=== PATIENT | female | born 1985 | race Two or more races ===

== ENCOUNTER 2024-11-25 15:45 | Emergency (ER) | payer MEDICAID, SELFPAY ==
[2024-11-25 15:46] VITALS: BMI 33.5
[2024-11-25 16:43] VITALS: BP 127/85; PULSE 98; RESP 16; TEMP 36.9; O2SAT 97
--- NOTE | 2024-11-25 16:59 | XR_ITS ---
Examination: Complete OB ultrasound greater than 14 weeks Date and time of exam: November 25, 2024 1828 hrs. Indications: Onset heavy vaginal bleeding and pelvic pain beginning today Findings: Viable intrauterine single fetus with single amniotic sac presentation breech Cardiac motion 147 BPM Placenta fundal grade 1 no abruption Umbilical cord seen Amniotic fluid index 10.6 cm spine posterior Cervix 3.1 cm Right ovary 3.0 x 3.2 cm arterial flow 13 mm follicular cyst Left ovary 3.0 x by 2.3 cm arterial flow Composite estimated gestational age based on BPD, head circumference, abdominal circumference, femur length is 14 weeks 5 days Estimated weight 104.8 g. Survey of intracranial anatomy, spinal anatomy, abdominal anatomy, four-chamber heart performed with no abnormalities identified. Impression: Viable intrauterine gestation breech presentation No subchorionic hemorrhage demonstrated.
--- NOTE | 2024-11-25 17:00 | PD.EDRME ---
Rapid Medical Screening Exam RME Arrival date/time: 11/25/24 15:45 39-year-old female presents emergency department with complaints of vaginal bleeding reports possible 14 weeks of gestation. I have greeted and performed a focused initial assessment of this patient. Initial appropriate labs ordered at this time. A comprehensive ED assessment and evaluation of the patient and analysis of all test and completion of medical decision making process will be conducted by additional ED provider. Chief Complaint: Vaginal Bleeding Time Seen by Provider: 11/25/24 16:40 Vital signs: Vital Signs Temperature 98.5 F 11/25/24 16:43 Pulse Rate 98 11/25/24 16:43 Respiratory Rate 16 11/25/24 16:43 Blood Pressure 127/85 H 11/25/24 16:43 Pulse Oximetry (%) 97 11/25/24 16:43 Oxygen Delivery Method Room Air 11/25/24 16:43
[2024-11-25 17:43] LABS: Basophils % (Auto) 0 % (0-2.5); Eosinophils # (Auto) 0.1 Thou/mm3 (0.0-0.5); Eosinophils % (Auto) 1 % (0-10); Hemoglobin 12.1 g/dL (12.0-16.0); Immature Granulocytes % (Auto) 1 % (0-0); Immature Granulocytes Auto 0.06 Thou/mm3 (0.00-0.00); Lymphocytes % (Auto) 17 % (10-50); Mean Corpuscular HGB Conc 34.6 g/dl (31.0-37.0); Mean Corpuscular Hemoglobin 30.9 pg (25.0-35.0); Mean Corpuscular Volume 89 fL (80-100); Monocytes # (Auto) 0.9 Thou/mm3 (0.0-0.8); Monocytes % (Auto) 8 % (0-12); Neutrophils # (Auto) 8.8 Thou/mm3 (1.8-7.7); Neutrophils % (Auto) 74 % (37-80); Nucleated Red Blood Cell % 0 /100 WBC (0); Platelet Count 268 Thou/mm3 (140-440); RDW Standard Deviation 42.5 fL (36.4-46.3); Red Blood Count 3.92 Miln/mm3 (4.00-5.20); White Blood Count 11.8 Thou/mm3 (3.6-11.0)
[2024-11-25 17:59] LABS: Collection Type, Urine Clean Catch
[2024-11-25 18:04] LABS: Alanine Aminotransferase 14 U/L (10-49); Albumin, Serum 4.6 gm/dL (3.5-5.0); Albumin/Globulin Ratio 1.9 (1.2-2.2); Alkaline Phosphatase 53 U/L (46-116); Anion Gap 11 (7-16); Aspartate Amino Transferase 13 U/L (0-34); BUN/Creatinine Ratio 16 Ratio (12-20); Bilirubin,Total 0.3 mg/dL (0.3-1.2); Blood Urea Nitrogen 8 mg/dL (9-23); Calcium 9.9 mg/dL (8.3-10.6); Calcium (Corrected) 9.9 mg/dL (8.5-10.1); Carbon Dioxide 22.6 mMol/L (20.0-31.0); Chloride 104 mMol/L (98-107); Creatinine (Component) 0.5 mg/dL (0.6-1.3); Estimated Creatinine Clearance 140.9 mL/min (>60); Globulin 2.4 gm/dL (2.3-3.5); Glucose 88 mg/dL (74-106); Osmolality,Calculated 272 (275-295); Sodium 138 mMol/L (136-145); eGFR > 60 See Note
--- NOTE | 2024-11-25 18:07 | PD.EDVAGBL ---
ED OB Contraction Preg RMI/HPI General Chief complaint: Vaginal Bleeding Stated complaint: +PREG WITH VAG BLEED XTODAY Time Seen by Provider: 11/25/24 16:40 Arrival date/time: 11/25/24 15:45 RME / HPI RME / HPI Narrative: 11/25/24 15:45 39-year-old female presents emergency department with complaints of vaginal bleeding reports possible 14 weeks of gestation. I have greeted and performed a focused initial assessment of this patient. Initial appropriate labs ordered at this time. A comprehensive ED assessment and evaluation of the patient and analysis of all test and completion of medical decision making process will be conducted by additional ED provider. DR. JOHNSON MAIN ED EVALUATION: 39 year old female, who is 14 weeks , presents to the Emergency Department with complaint of vaginal bleeding today. Symptoms are mild to moderate. Patient denies any fevers, chills, fall, injury, or any other symptoms at this time. PMHx: Denies any PMHx, surgeries, daily medications, or known allergies. Social Hx: No tobacco, alcohol, or substance use. Related Data Home Medications ?Medication ?Instructions ?Recorded ?Confirmed sertraline 25 mg tablet 25 mg PO QDAY 08/11/18 02/28/24 cephalexin 500 mg capsule 500 mg PO BID 02/28/24 02/28/24 omeprazole 20 mg capsule,delayed 20 mg PO QDAY 02/28/24 02/28/24 release Previous Rx's ?Medication ?Instructions ?Recorded ibuprofen 600 mg tablet 600 mg PO Q6H PRN pain #20 tabs 01/08/24 IBU 800 mg tablet (ibuprofen) 800 mg PO Q6H PRN pain #30 tabs 05/27/24 acetaminophen 500 mg tablet 500 mg PO Q6H PRN fever or pain 05/27/24 (Tylenol Extra Strength) #30 tabs nitrofurantoin 100 mg PO BID #14 caps 11/25/24 monohydrate/macrocrystals 100 mg capsule (Macrobid) vit no.95-ferrous 1 tab PO QDAY #30 tabs 11/25/24 fumarate 28 mg-folic acid 800 mcg tablet ( Multivitamins) Allergies Allergy/AdvReac Type Severity Reaction Status Date / Time vancomycin Allergy Severe Red [place] Verified 11/25/24 15:48 Syndrome Review of Systems Review of Systems Systems Reviewed: All systems reviewed, normal except as documented Narrative Review of Systems: GEN: No fever, no chills, no weight loss EYES: No discharge, no visual changes, no pain HEENT: No ear pain, no congestion, no sore throat PULM: No shortness of breath, no cough, no congestion CV: No chest pain, no dyspnea on exertion, no palpitations GI: No nausea, no vomiting, no diarrhea, no pain, no constipation : No frequency, no urgency and no dysuria + vaginal bleeding MUSC/SKEL: No joint pain, no back pain SKIN: No rash PSYCH: No hallucinations, no depression HEME/LYMPH: No easy bleeding or bruising tendencies NEURO: No weakness, no headache Past Medical History Past Medical History NEUROLOGIC: Positive Neurological Disorders and Migraine (TAKES MED) REPRODUCTIVE: Positive Previous Pregnancies (X3) MUSCULOSKELETAL: Positive Musculoskeletal Disorders HEMATOLOGIC: Positive Anemia PSYCHO/SOCIAL: Positive Anxiety (TAKES SERTRALINE) Family History FAMILY HISTORY: Positive Family Psychiatric Problems, Family Cardiac Disorders and Family Surgery Surgical History SURGICAL: Positive Lumpectomy Social History SMOKING STATUS: Never smoker SECOND HAND EXPOSURE: No SUBSTANCE USE: does not use ALCOHOL: Never ED Exam Narrative Physical exam: GENERAL APPEARANCE: alert and oriented x 4, well-developed, well-nourished, no acute distress VITALS: All vitals were reviewed and the pulse ox is 97% on room air, which is normal according to my interpretation. HEENT: Normocephalic, atraumatic; pupils equal, round, reactive to light; EOMI; mucous membranes pink, moist; oropharynx clear NECK: Supple LUNGS: CTABL; no wheezes, no rales, no rhonchi HEART: Regular rate, regular rhythm; normal S1, S2; no murmurs ABDOMEN: non distended; normal BS; soft, no tenderness, no guarding, no rebound; no masses, no organomegaly, no hernia BACK: no CVA tenderness EXTREMITIES: atraumatic; no edema NEUROLOGIC: awake; alert and oriented x4; cranial nerves II-XII grossly intact; no focal sensory or motor deficits PSYCHIATRIC: appropriate mood and affect SKIN: warm, dry, normal color; no rashes Course Quality Measures none Orders Category Date Time Status US OB >= 14 weeks Fetus Stat Exams 11/25/24 16:59 Completed ABO/RH Type Stat Lab 11/25/24 17:30 Completed Beta HCG,Quantitative Stat Lab 11/25/24 17:30 Completed CBC Stat Lab 11/25/24 17:30 Completed Comprehensive Metabolic Panel Stat Lab 11/25/24 17:30 Completed Urinalysis Stat Lab 11/25/24 17:41 Completed Urine Culture Stat Lab 11/25/24 17:41 Received Nitrofurantoin Macro [Macrobid] Med 11/25/24 19:55 Discontinued 100 mg PO X1 ONE Vital Signs Vital signs: Vital Signs Temperature 98.5 F 11/25/24 16:43 Pulse Rate 98 11/25/24 16:43 Respiratory Rate 16 11/25/24 16:43 Blood Pressure 127/85 H 11/25/24 16:43 Pulse Oximetry (%) 97 11/25/24 16:43 Oxygen Delivery Method Room Air 11/25/24 16:43 Vaginal Bleeding MDM Narrative MDM Narrative: Keshia Michaud am scribing for and in the presence of Dr. Johnson. Patient data External records reviewed:: [facility] previous records (Reviewed last ED visit dated 05/27/24, discharged with the following: Abscess.) Clinical information provided by:: patient Social determinants that could affect healthcare access:: none Patient has the following chronic illnesses:: Denies any PMHx, surgeries, daily medications, or known allergies. How is presenting disease/condition affected by chronic disease/condition?: no chronic disease Evaluation data The following diagnostics were reviewed and interpreted by me:: lab results and radiology exam(s) Lab and/or radiology exams considered but not ordered:: none Interpretation Summary: Procedure(s): US OB >= 14 weeks Fetus Accession Number(s): [id number] cc: Lars Campuzano MD; Jesse Canales MD; Libra Parker~ Examination: Complete OB ultrasound greater than 14 weeks Date and time of exam: November 25, 2024 1828 hrs. Indications: Onset heavy vaginal bleeding and pelvic pain beginning today Findings: Viable intrauterine single fetus with single amniotic sac presentation breech Cardiac motion 147 BPM Placenta fundal grade 1 no abruption Umbilical cord seen Amniotic fluid index 10.6 cm spine posterior Cervix 3.1 cm Right ovary 3.0 x 3.2 cm arterial flow 13 mm follicular cyst Left ovary 3.0 x by 2.3 cm arterial flow Composite estimated gestational age based on BPD, head circumference, abdominal circumference, femur length is 14 weeks 5 days Estimated weight 104.8 g. Survey of intracranial anatomy, spinal anatomy, abdominal anatomy, four-chamber heart performed with no abnormalities identified. Impression: Viable intrauterine gestation breech presentation No subchorionic hemorrhage demonstrated. Dictated By: Jesse Canales MD Medications / Prescriptions Medications or Prescriptions considered but not ordered:: none Medication administrations:: Medication Administration History Discontinued Medications Nitrofurantoin Macrocrystals (Nitrofurantoin Macro 100 Mg Capsule) 100 mg PO X1 ONE Stop: 11/25/24 19:56 see above if any Consultations Consultation(s) initiated? (list below): No Diagnosis Vaginal Bleeding Differential Diagnosis: missed , threatened , ectopic without intrauterine and vaginal bleeding Most likely diagnosis given after review of the tests above:: Vaginal bleeding during UTI Admission Indicated Admission indicated?: not indicated Admission Request Was there a request for admission?: No Disposition Plan Disposition Plan: Discharge Discharge Attestation Discharge Attestation: The patient and all family members were given an opportunity to ask questions and understood the discharge instructions. Discharge instructions specifically effects, indications for sooner follow up or return to the emergency department, and the expected course of current diagnosis. Patient condition: Stable Discharge Plan Plan Patient Disposition: HOME (Self Care) Prescriptions/Referrals Prescriptions/Med Rec: New PNV cmb#95-ferrous fumarate-FA [ Multivitamins] 28 mg iron- 800 mcg tablet 1 tab PO QDAY Qty: 30 0RF nitrofurantoin monohyd/m-cryst [Macrobid] 100 mg capsule 100 mg PO BID Qty: 14 0RF Rx Instructions: must administer with a meal/food No Action omeprazole 20 mg capsule,delayed release(DR/EC) 20 mg PO QDAY cephalexin 500 mg capsule 500 mg PO BID sertraline 25 mg Tablet 25 mg PO QDAY ibuprofen 600 mg tablet 600 mg PO Q6H PRN (Reason: pain) Qty: 20 0RF ibuprofen [IBU] 800 mg tablet 800 mg PO Q6H PRN (Reason: pain) Qty: 30 0RF acetaminophen [Tylenol Extra Strength] 500 mg tablet 500 mg PO Q6H PRN (Reason: fever or pain) Qty: 30 0RF Referrals: Lars Campuzano MD [Primary Care Provider] - In 1 week Problem List Clinical Impression: , Vaginal bleeding during , UTI (urinary tract infection) Patient/Caregiver Discharge Instructions Education Materials: Preg 2nd Trimester, Bleeding During Early , ED CYSTITIS Female Adult Print Language: Samoan Stand Alone Forms: Skylar Award Info., Patient Portal Info Letter
[2024-11-25 18:45] LABS: Beta HCG,Quantitative 41907 mIU/mL (<5.0)
[2024-11-25 18:50] LABS: Bacteria,Urine 3+; Bilirubin,Urine Negative (Negative); Blood,Urine 3+ (Negative); Clarity,Urine Clear (Clear/Hazy); Color,Urine Lt-Yellow (Lt Yel-Yel); Glucose, Urine Negative (Negative); Ketones,Urine Negative (Negative); Leukocyte Esterase,Urine Positive (Negative); Nitrite,Urine Negative (Negative); Protein,Urine Trace (Neg - Trace); RBC,Urine 13 /hpf (0-3); Specific Gravity,Urine 1.011 (1.001-1.035); Squamous Epithelial Cell,Urine 3 /hpf (0-5); Urobilinogen,Urine Negative mg/dL (0.0-1.0); WBC,Urine 17 /hpf (0-5)
[2024-11-25 18:51] LABS: Sperm,Urine Present
[2024-11-25] MEDS: NITROFURANTOIN MACRO 100 MG CAPSULE PO (20:59)
[2024-11-25 21:01] VITALS: BP 127/65; PULSE 67; RESP 19; TEMP 36.6; O2SAT 99
== END 2024-11-25 21:01 | disposition home or self-care (01) ==
PROVIDERS: Nurse Practitioner Primary Care; Emergency Provider Emergency Medicine; PCP Family Medicine
DX: O20.9 Hemorrhage in early pregnancy, unspecified (principal); O23.42 Unspecified infection of urinary tract in pregnancy, second trimester; N39.0 Urinary tract infection, site not specified; Z3A.14 14 weeks gestation of pregnancy
CPT/HCPCS: 36415; 76805; 80053; 81001; 84702; 85025; 86900; 86901; 87077; 87086; 87186; 99284; A9270

== ENCOUNTER 2024-12-31 18:10 | Emergency (ER) | payer MEDICAID, SELFPAY ==
[2024-12-31 18:12] VITALS: BMI 31.6
[2024-12-31 18:26] VITALS: BP 127/76; PULSE 89; RESP 18; TEMP 36.6; O2SAT 98
--- NOTE | 2024-12-31 18:47 | PD.EDRME ---
Rapid Medical Screening Exam RME Arrival date/time: 12/31/24 18:10 39-year-old female approximately 5 months presents emergency department complaining of abdominal pain that radiates towards her back that started this morning. Patient reports past medical history of gallstones. Chief Complaint: General Adult/Misc Complain Time Seen by Provider: 12/31/24 18:17 Vital signs: Vital Signs Temperature 97.8 F 12/31/24 18:26 Pulse Rate 89 12/31/24 18:26 Respiratory Rate 18 12/31/24 18:26 Blood Pressure 127/76 12/31/24 18:26 Pulse Oximetry (%) 98 12/31/24 18:26 Oxygen Delivery Method Room Air 12/31/24 18:26 Vital signs reviewed by provider: Yes
[2024-12-31] MEDS: HYDROcodone/APAP 5/325 TABLET 1 TAB PO (18:48)
--- NOTE | 2024-12-31 18:48 | XR_ITS ---
Examination: Abdomen sonogram, Limited Date and time of exam: December 31, 2024 2106 hrs. Indications: Right upper abdominal pain beginning today Technique: Real-time bonilla scale transabdominal sonographic images of the upper abdomen obtained. Findings: Negative for gallstones Normal common bile duct Pancreatic head 2.0 cm Fatty liver 17.7 cm Normal hepatopedal portal venous flow Patent IVC Impression: Normal gallbladder Mild hepatomegaly fatty liver
--- NOTE | 2024-12-31 18:56 | XR_ITS ---
Examination: Complete OB ultrasound greater than 14 weeks Date and time of exam: December 31, 2024 2113 hrs. Indications: Onset right upper abdominal pain today,. Findings: Viable intrauterine single fetus with single amniotic sac presentation cephalic Cardiac motion 150 BPM Placenta anterior grade 1 Umbilical cord insertion seen Amniotic fluid index 10.9 cm Cervix 3.7 cm Ovaries obscured by the uterus. Composite estimated gestational age based on BPD, head circumference, abdominal circumference, femur length is 19 weeks 6 days Estimated weight 228 g. Survey of intracranial anatomy, spinal anatomy, abdominal anatomy, four-chamber heart performed with no abnormalities identified. Impression: Viable intrauterine gestation cephalic presentation.
[2024-12-31 19:22] LABS: Collection Type, Urine Clean Catch
[2024-12-31 19:25] LABS: Basophils % (Auto) 0 % (0-2.5); Eosinophils # (Auto) 0.1 Thou/mm3 (0.0-0.5); Eosinophils % (Auto) 1 % (0-10); Hematocrit 34.3 % (36.0-46.0); Hemoglobin 11.6 g/dL (12.0-16.0); Immature Granulocytes % (Auto) 1 % (0-0); Immature Granulocytes Auto 0.08 Thou/mm3 (0.00-0.00); Lymphocytes # (Auto) 2.8 Thou/mm3 (1.0-4.8); Lymphocytes % (Auto) 21 % (10-50); Mean Corpuscular HGB Conc 33.8 g/dl (31.0-37.0); Mean Corpuscular Hemoglobin 30.4 pg (25.0-35.0); Mean Corpuscular Volume 90 fL (80-100); Monocytes # (Auto) 0.8 Thou/mm3 (0.0-0.8); Monocytes % (Auto) 6 % (0-12); Neutrophils # (Auto) 9.2 Thou/mm3 (1.8-7.7); Neutrophils % (Auto) 71 % (37-80); Nucleated Red Blood Cell % 0 /100 WBC (0); Platelet Count 235 Thou/mm3 (140-440); RDW Standard Deviation 43.3 fL (36.4-46.3); Red Blood Count 3.81 Miln/mm3 (4.00-5.20)
[2024-12-31 19:27] LABS: Bilirubin,Urine Negative (Negative); Blood,Urine Negative (Negative); Clarity,Urine Turbid (Clear/Hazy); Color,Urine Lt-Yellow (Lt Yel-Yel); Culture Indicated,Urine Not Indicated; Glucose, Urine Negative (Negative); Ketones,Urine Negative (Negative); Leukocyte Esterase,Urine Negative (Negative); Nitrite,Urine Negative (Negative); PH,Urine 6.5 (5.0-7.0); Protein,Urine Trace (Neg - Trace); RBC,Urine 1 /hpf (0-3); Specific Gravity,Urine 1.022 (1.001-1.035); Squamous Epithelial Cell,Urine 14 /hpf (0-5); Urobilinogen,Urine Negative mg/dL (0.0-1.0); WBC,Urine 1 /hpf (0-5)
[2024-12-31 19:44] LABS: Alanine Aminotransferase 12 U/L (10-49); Albumin, Serum 4.3 gm/dL (3.5-5.0); Albumin/Globulin Ratio 1.9 (1.2-2.2); Alkaline Phosphatase 54 U/L (46-116); Anion Gap 10 (7-16); Aspartate Amino Transferase 15 U/L (0-34); BUN/Creatinine Ratio 17 Ratio (12-20); Bilirubin,Total 0.3 mg/dL (0.3-1.2); Blood Urea Nitrogen 10 mg/dL (9-23); Calcium 9.5 mg/dL (8.3-10.6); Calcium (Corrected) 9.5 mg/dL (8.5-10.1); Carbon Dioxide 22.4 mMol/L (20.0-31.0); Chloride 106 mMol/L (98-107); Creatinine (Component) 0.6 mg/dL (0.6-1.3); Estimated Creatinine Clearance 113.8 mL/min (>60); Globulin 2.3 gm/dL (2.3-3.5); Glucose 104 mg/dL (74-106); Lipase 37 U/L (12-53); Osmolality,Calculated 274 (275-295); Potassium 3.7 mMol/L (3.4-5.1); Sodium 138 mMol/L (136-145); Total Protein 6.6 gm/dL (5.7-8.2); eGFR > 60 See Note
[2024-12-31 20:08] VITALS: BP 147/84; PULSE 106; RESP 20; TEMP 36.7; O2SAT 98
[2024-12-31] MEDS: METOCLOPRAMIDE INJ 5 MG/ML VIAL 2 ML 10 MG IM (20:43)
--- NOTE | 2024-12-31 22:06 | PD.EDADULT ---
ED General RME/HPI General Chief complaint: General Adult/Misc Complain Stated complaint: PAIN IN HER BLADDER, BACK TO FRONT ON THE R) Time Seen by Provider: 12/31/24 18:17 Arrival date/time: 12/31/24 18:10 RME / HPI RME / HPI narrative: 12/31/24 18:10 39-year-old female approximately 5 months presents emergency department complaining of abdominal pain that radiates towards her back that started this morning. Patient reports past medical history of gallstones. Dr. Meléndez?s Main ED Evaluation: 39yo female who is ~5 month gestation presents to the ED for a chief complaint of epigastric and RUQ pain x 1000. Patient states her pain radiates to her back and is severe in nature. Patient reports associated sweating and 2 nonbloody emetic episodes. Patient denies any UTI symptoms, fever, chills or any other associated symptoms. She denies any previous abdominal surgeries. Patient states she had similar symptoms 1 year ago when she was diagnosed with gallstones. Related Data Home Medications ?Medication ?Instructions ?Recorded ?Confirmed sertraline 25 mg tablet 25 mg PO QDAY 08/11/18 02/28/24 cephalexin 500 mg capsule 500 mg PO BID 02/28/24 02/28/24 omeprazole 20 mg capsule,delayed 20 mg PO QDAY 02/28/24 02/28/24 release Previous Rx's ?Medication ?Instructions ?Recorded ibuprofen 600 mg tablet 600 mg PO Q6H PRN pain #20 tabs 01/08/24 IBU 800 mg tablet (ibuprofen) 800 mg PO Q6H PRN pain #30 tabs 05/27/24 acetaminophen 500 mg tablet 500 mg PO Q6H PRN fever or pain 05/27/24 (Tylenol Extra Strength) #30 tabs nitrofurantoin 100 mg PO BID #14 caps 11/25/24 monohydrate/macrocrystals 100 mg capsule (Macrobid) vit no.95-ferrous 1 tab PO QDAY #30 tabs 11/25/24 fumarate 28 mg-folic acid 800 mcg tablet ( Multivitamins) Allergies Allergy/AdvReac Type Severity Reaction Status Date / Time vancomycin Allergy Severe Red Dafne Verified 12/31/24 18:15 Syndrome Review of Systems Review of Systems Systems Reviewed: All systems reviewed, normal except as documented Past Medical History Past Medical History NEUROLOGIC: Positive Neurological Disorders and Migraine; Negative Seizures CARDIAC: Negative Cardiac Disorders, Myocardial Infarction, Cardiac Arrhythmia, Atrial Fibrillation, Angina, Heart Murmur, Coronary Artery Disease, Atherosclerotic Heart Disease, Peripheral Vascular Disease, Hypercholesterolemia, Aneurysm, Congestive Heart Failure, Congenital Heart Disease, Valvular Heart Disease, Rheumatic Fever, Cardiomyopathy, Edema, Pericarditis, Cellulitis, Deep Vein Thrombosis, Hypertension, Hypotension or Varicose Veins RESPIRATORY: Negative Chronic Obstructive Pulmonary Disease (COPD) GASTROINTESTINAL: Negative Gastrointestinal Disorders, Hepatitis or Colorectal Cancer GENITOURINARY: Negative Genitourinary Disorders, Renal Disease or Prostate Cancer REPRODUCTIVE: Positive Previous Pregnancies; Negative Breast Cancer or Testicular Cancer MUSCULOSKELETAL: Positive Musculoskeletal Disorders; Negative Bone Cancer or Carpal Tunnel Syndrome ENT: Negative Cataracts ENDOCRINE: Negative Endocrine Disorders, Diabetes Mellitus Type 1, Diabetes Mellitus Type 2, Hypoglycemia, Kentrell's Syndrome, [place]'s Disease, Hyperthyroidism, Hypothyroidism, Parathyroid Disease, Pituitary Disease, Systemic Lupus Erythematosus, Syndrome of Inappropriate Antidiuretic Hormone (SIADH), Adrenal Disease or Graves' Disease HEMATOLOGIC: Positive Anemia; Negative Blood Disorders PSYCHO/SOCIAL: Positive Anxiety OTHER HISTORY: Negative Hospitalization, Autoimmune Disease, Developmental Delay, Shingles, Falls, Blood Transfusions, Blood Transfusion Reaction, Anesthesia Reactions, Organ Transplant, Chemotherapy, Radiation Therapy, Hyperbaric Therapy, MRSA, VRSA, Vancomycin-Resistant Enterococci, Human Immunodeficiency Virus (HIV), Chicken Pox, Measles, Mumps, Rubella (Serbian Measles), Pertussis, Clostridium Difficile, Cancer, Breast Cancer, Cervical Cancer, Colorectal Cancer, Lung Cancer, Ovarian Cancer, Prostate Cancer or Testicular Cancer Family History FAMILY HISTORY: Positive Family Psychiatric Problems, Family Cardiac Disorders and Family Surgery; Negative Family Respiratory Disorders, Family Gastrointestinal Problems, Family Cancer or Family Anesthesia Reaction Surgical History SURGICAL: Positive Lumpectomy; Negative Cardiac Surgery, Pacemaker, Endocrine Surgery, Thyroidectomy, Ear Surgery, Tympanostomy Tube, Eye Surgery, Nose Surgery, Oral Surgery, Tonsillectomy, Adenoidectomy, Cochlear Implant, Corneal Transplant, Throat Surgery, Abdominal Surgery, Tracheostomy, Gastric Bypass Surgery, Gastrostomy, Bowel Surgery, Nephrectomy, Transurethral Resection, Joint Replacement, Amputation, Open Reduction Internal Fixation, Arthroscopy, Neurologic Surgery, Brain Shunt, Mastectomy, Hysterectomy, Tubal Ligation, Section, Vasectomy or Organ Transplant Social History SMOKING STATUS: Never smoker SECOND HAND EXPOSURE: No SUBSTANCE USE: does not use ED Exam Narrative Physical exam: GENERAL APPEARANCE: alert and oriented x 4, well-developed, well-nourished, no acute distress VITALS: All vitals were reviewed and the pulse ox is 98% on room air, which is normal according to my interpretation. HEENT: Normocephalic, atraumatic; pupils equal, round, reactive to light; EOMI; mucous membranes pink, moist; oropharynx clear NECK: Supple LUNGS: CTABL; no wheezes, no rales, no rhonchi HEART: Regular rate, regular rhythm; normal S1, S2; no murmurs ABDOMEN: non distended; normal BS; soft, gravid to the umbilicus, moderate RUQ tenderness, positive Linares sign, voluntary guarding, no rebound; no masses, no organomegaly, no hernia BACK: no CVA tenderness EXTREMITIES: atraumatic; no edema NEUROLOGIC: awake; alert and oriented x4; cranial nerves II-XII grossly intact; no focal sensory or motor deficits PSYCHIATRIC: appropriate mood and affect SKIN: warm, dry, normal color; no rashes Course Quality Measures none Orders Category Date Time Status US OB >= 14 weeks Fetus Stat Exams 12/31/24 18:56 Completed US gall bladder Stat Exams 12/31/24 18:48 Completed CBC Stat Lab 12/31/24 19:01 Completed CMP [Comprehensive Metabolic Panel] Stat Lab 12/31/24 19:01 Completed Lipase Stat Lab 12/31/24 19:01 Completed Urinalysis, C/S if Indicated Stat Lab 12/31/24 19:11 Completed HYDROcodone*/APAP 5/325 [Ross 5/325] Med 12/31/24 18:46 Discontinued 1 tab PO X1 ONE Metoclopramide Inj [Reglan Inj] Med 12/31/24 20:10 Discontinued 10 mg IM X1 ONE Morphine Inj Med 12/31/24 22:14 Discontinued 2 mg IVP X1 ONE Reevaluation(s) Reevaluation #1: Discussed results with the patient and her partner at bedside. I feel the patient is stable to be discharged home. I gave the patient strict return precautions and encouraged them to return if they feel the patient is having any worsening or other concerning symptoms. They verbalized understanding. Time: 22:54 Vital Signs Vital signs: Vital Signs Temperature 97.8 F 12/31/24 18:26 Pulse Rate 89 03/02/25 18:26 Respiratory Rate 18 12/31/24 18:26 Blood Pressure 127/76 12/31/24 18:26 Pulse Oximetry (%) 98 12/31/24 18:26 Oxygen Delivery Method Room Air 12/31/24 18:26 [facility] Patient data External records reviewed:: [facility] previous records (Per EMR review, patient was seen here on 11/25/24 for .) Clinical information provided by:: patient Social determinants that could affect healthcare access:: none Patient has the following chronic illnesses:: none How is presenting disease/condition affected by chronic disease/condition?: no chronic disease Evaluation data The following diagnostics were reviewed and interpreted by me:: lab results Lab and/or radiology exams considered but not ordered:: none Interpretation Summary: WBC count is elevated at 13.0, CMP is normal, Lipase is normal, UA is unremarkable, according to my interpretation. [facility] Report Signed Patient: DANYA RAVI Record#: [id number] Birthdate: 1985 Age/Sex: 39 / F [facility] Attending Dr: Ordering Physician: Alta Paz (LAQUITA)Diogo Date of Service: 12/31/24 Procedure(s): US OB >= 14 weeks Fetus Accession Number(s): [id number] cc: Jesse Canales MD; NO PRIMARY/FAMILY,PHYSICIAN; Alta Paz (LACQUER MAKER),Diogo COELHO~ Examination: Complete OB ultrasound greater than 14 weeks Date and time of exam: December 31, 2024 2113 hrs. Indications: Onset right upper abdominal pain today,. Findings: Viable intrauterine single fetus with single amniotic sac presentation cephalic Cardiac motion 150 BPM Placenta anterior grade 1 Umbilical cord insertion seen Amniotic fluid index 10.9 cm Cervix 3.7 cm Ovaries obscured by the uterus. Composite estimated gestational age based on BPD, head circumference, abdominal circumference, femur length is 19 weeks 6 days Estimated weight 228 g. Survey of intracranial anatomy, spinal anatomy, abdominal anatomy, four-chamber heart performed with no abnormalities identified. Impression: Viable intrauterine gestation cephalic presentation. Dictated By: Jesse Canales MD Signed By: <Electronically signed by Jesse Canales MD in OV> 12/31/247- [facility] Report Signed Patient: DANYA RAVI Record#: [id number] Birthdate: 1985 Age/Sex: 39 / F Location: [facility] Attending Dr: Ordering Physician: Alta QUEZADA)Diogo Date of Service: 12/31/24 Procedure(s): US gall bladder Accession Number(s): [id number] cc: Jesse Canales MD; NO PRIMARY/FAMILY,PHYSICIAN; Alta QUEZADA),Diogo COELHO~ Examination: Abdomen sonogram, Limited Date and time of exam: December 31, 2024 2106 hrs. Indications: Right upper abdominal pain beginning today Technique: Real-time bonilla scale transabdominal sonographic images of the upper abdomen obtained. Findings: Negative for gallstones Normal common bile duct Pancreatic head 2.0 cm Fatty liver 17.7 cm Normal hepatopedal portal venous flow Patent IVC Impression: Normal gallbladder Mild hepatomegaly fatty liver Dictated By: Jesse Canales MD Signed By: <Electronically signed by Jesse Canales MD in OV> 12/31/242157 Medications Medications considered but not ordered:: none Medication administrations:: Medication Administration History Discontinued Medications Hydrocodone Bitart/Acetaminophen (Hydrocodone/Apap 5/325 Tablet) 1 tab PO X1 ONE Stop: 12/31/24 18:47 Last Admin: 12/31/24 18:48 Dose: 1 tab Documented By: SONIDO Metoclopramide HCl (Metoclopramide Inj 5 Mg/Ml Vial 2 Ml) 10 mg IM X1 ONE; Protocol Stop: 12/31/24 20:11 Last Admin: 12/31/24 20:43 Dose: 10 mg Documented By: SONIDO Morphine Sulfate (Morphine Sulf Inj 10 Mg/Ml Vial) 2 mg IVP X1 ONE Stop: 12/31/24 22:15 Last Admin: 12/31/24 22:40 Dose: 2 mg Documented By: SANDRA see above Consultations Consultation(s) initiated? (list below): No Diagnosis Differential Diagnosis ED Complaint MDM: appendicitis, cholelithiasis, cholecystitis, choledocolithiasis Most likely diagnosis given after review of the tests above:: Other DDx: pancreatitis, abruption Final Dx: see below Admission Indicated Admission indicated?: not indicated Explain why admission is indicated or not indicated:: Admission criteria not met. Admission Request Was there a request for admission?: No Disposition Plan Disposition Plan: Discharge Discharge Attestation Discharge Attestation: The patient and all family members were given an opportunity to ask questions and understood the discharge instructions. Discharge instructions specifically effects, indications for sooner follow up or return to the emergency department, and the expected course of current diagnosis. Patient condition: Stable Medical Decision Making MDM Narrative MDM Narrative: Scribe Attestation: 12/31/24 - Melissa Michaud am scribing for and in the presence of Dr. Meléndez. Differential Diagnosis Differential Diagnosis: appendicitis, cholelithiasis, cholecystitis, choledocolithiasis Lab Data 12/31/24 19:01 12/31/24 19:01 Labs: Lab Results 12/31/24 12/31/24 Range/Units 19:01 19:11 WBC 13.0 H (3.6-11.0) Thou/mm3 RBC 3.81 L (4.00-5.20) Miln/mm3 Hgb 11.6 L (12.0-16.0) g/dL Hct 34.3 L (36.0-46.0) % MCV 90 (80-100) fL MCH 30.4 (25.0-35.0) pg MCHC 33.8 (31.0-37.0) g/dl RDW Std Deviation 43.3 (36.4-46.3) fL Plt Count 235 D (140-440) Thou/mm3 Neut % (Auto) 71 (37-80) % Lymph % (Auto) 21 (10-50) % [place] % (Auto) 6 (0-12) % Eos % (Auto) 1 (0-10) % Baso % (Auto) 0 (0-2.5) % Neut # (Auto) 9.2 H (1.8-7.7) Thou/mm3 Lymph # (Auto) 2.8 (1.0-4.8) Thou/mm3 [place] # (Auto) 0.8 (0.0-0.8) Thou/mm3 Eos # (Auto) 0.1 (0.0-0.5) Thou/mm3 Baso # (Auto) 0.0 (0.0-0.2) Thou/mm3 Immature Gran # (Auto) 0.08 H (0.00-0.00) Thou/mm3 Absolute Nucleated RBC 0.00 (0.00-0.00) Thou/mm3 Immature Gran % 1 H (0-0) % Nucleated RBC % 0 (0) /100 WBC Sodium 138 (136-145) mMol/L Potassium 3.7 (3.4-5.1) mMol/L Chloride 106 (98-107) mMol/L Carbon Dioxide 22.4 (20.0-31.0) mMol/L Anion Gap 10 (7-16) BUN 10 (9-23) mg/dL Creatinine 0.6 (0.6-1.3) mg/dL Estim Creat Clear Calc 113.8 (>60) mL/min eGFR > 60 (60 - ) See Note BUN/Creatinine Ratio 17 (12-20) Ratio Glucose 104 (74-106) mg/dL Calculated Osmolality 274 L (275-295) Calcium 9.5 (8.3-10.6) mg/dL Corrected Calcium 9.5 (8.5-10.1) mg/dL Total Bilirubin 0.3 (0.3-1.2) mg/dL AST 15 (0-34) U/L ALT 12 (10-49) U/L Alkaline Phosphatase 54 (46-116) U/L Total Protein 6.6 (5.7-8.2) gm/dL Albumin 4.3 (3.5-5.0) gm/dL Globulin 2.3 (2.3-3.5) gm/dL Albumin/Globulin Ratio 1.9 (1.2-2.2) Lipase 37 (12-53) U/L Ur Collection Type Clean Catch Urine Color Lt-Yellow (Lt Yel-Yel) Urine Clarity Turbid A (Clear/Hazy) Urine pH 6.5 (5.0-7.0) Ur Specific [place] 1.022 (1.001-1.035) Urine Protein Trace (Neg - Trace) Urine Glucose (UA) Negative (Negative) Urine Ketones Negative (Negative) Urine Blood Negative (Negative) Urine Nitrite Negative (Negative) Urine Bilirubin Negative (Negative) Urine Urobilinogen (Auto) Negative (0.0-1.0) mg/dL Ur Leukocyte Esterase Negative (Negative) Urine RBC 1 (0-3) /hpf Urine WBC 1 (0-5) /hpf Ur Squamous Epith Cells 14 H (0-5) /hpf Urine Bacteria None (None) Ur Culture Indicated? Not Indicated Discharge Plan Plan Patient Disposition: HOME (Self Care) Disposition Comment: Stable for discharge Patient condition on transfer: Stable Prescriptions/Referrals Prescriptions/Med Rec: No Action omeprazole 20 mg capsule,delayed release(DR/EC) 20 mg PO QDAY cephalexin 500 mg capsule 500 mg PO BID sertraline 25 mg Tablet 25 mg PO QDAY ibuprofen 600 mg tablet 600 mg PO Q6H PRN (Reason: pain) Qty: 20 0RF ibuprofen [IBU] 800 mg tablet 800 mg PO Q6H PRN (Reason: pain) Qty: 30 0RF acetaminophen [Tylenol Extra Strength] 500 mg tablet 500 mg PO Q6H PRN (Reason: fever or pain) Qty: 30 0RF PNV cmb#95-ferrous fumarate-FA [ Multivitamins] 28 mg iron- 800 mcg tablet 1 tab PO QDAY Qty: 30 0RF nitrofurantoin monohyd/m-cryst [Macrobid] 100 mg capsule 100 mg PO BID Qty: 14 0RF Rx Instructions: must administer with a meal/food Referrals: [facility] [Outside] - In 1 week Problem List Clinical Impression: Abdominal pain Patient/Caregiver Discharge Instructions Discharge Activity: activity as tolerated Education Materials: Abdominal Pain Additional Instructions: Please return to the emergency department if you have any worsening or any further medical problems. Otherwise you should follow-up with your primary care doctor within the next several days or in the [facility]. It is very important that if you have increasing abdominal pain tomorrow that you return to the ER right away. Print Language: Taiwanese Stand Alone Forms: [facility] Award Info., Patient Portal Info Letter
[2024-12-31 22:19] VITALS: BP 149/89; PULSE 80; RESP 18; O2SAT 98
[2024-12-31 22:20] VITALS: BP 149/89; PULSE 99; RESP 19; TEMP 36.6; O2SAT 97
[2024-12-31] MEDS: MORPHINE SULF INJ 10 MG/ML VIAL 2 MG IVP (22:40)
[2024-12-31 23:05] VITALS: BP 138/79; PULSE 81; RESP 18; TEMP 36.8; O2SAT 98
== END 2024-12-31 23:10 | disposition home or self-care (01) ==
PROVIDERS: Emergency Provider Emergency Medicine
DX: R10.13 Epigastric pain (principal); O26.892 Other specified pregnancy related conditions, second trimester; Z3A.19 19 weeks gestation of pregnancy
CPT/HCPCS: 36415; 76705; 76805; 80053; 81001; 83690; 85025; 96372; 96374; 99284; J2270; J2765; A9270

== ENCOUNTER 2025-01-26 09:42 | Emergency (ER) | payer MEDICAID, SELFPAY ==
[2025-01-26 09:52] VITALS: BP 115/78; PULSE 88; RESP 16; TEMP 36.9; O2SAT 98; BMI 32.0
[2025-01-26 09:56] VITALS: PULSE 86
--- NOTE | 2025-01-26 10:17 | EKG_ITS ---
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
[2025-01-26 10:45] VITALS: BP 110/70; BP 118/81; BP 128/82; PULSE 75; PULSE 79; PULSE 89
--- NOTE | 2025-01-26 10:47 | PD.EDSYNC ---
ED Syncope RME/HPI General Chief Complaint: Syncope / Near Syncope Stated Complaint: NEAR SYNCOPE Time Seen by Provider: 01/26/25 10:25 Arrival date/time: 01/26/25 09:42 RME / HPI RME / HPI narrative: 39 year old female who is currently 24 weeks gestational age presents to the ED [place] postal office for near syncopal episode today. Patient reports she was standing in line at the postal office when she suddenly began to feel weak, faint, and dizzy. Accompanied by cold sweats, ear ringing, and slightly short of breath. Says she sat on a chair and was given water and alcohol to smell by staff where her symptoms shortly after improved. Mentioned she has previously felt dizzy and faint with cold sweats that quickly improve. Denied losing consciousness. Denies fevers, chills, chest pain, cough, nausea, vomiting, diarrhea, abdominal pain, or urinary symptoms. No other complaints reported. Related Data Home Medications ?Medication ?Instructions ?Recorded ?Confirmed sertraline 25 mg tablet 25 mg PO QDAY 08/11/18 02/28/24 cephalexin 500 mg capsule 500 mg PO BID 02/28/24 02/28/24 omeprazole 20 mg capsule,delayed 20 mg PO QDAY 02/28/24 02/28/24 release Previous Rx's ?Medication ?Instructions ?Recorded ibuprofen 600 mg tablet 600 mg PO Q6H PRN pain #20 tabs 01/08/24 IBU 800 mg tablet (ibuprofen) 800 mg PO Q6H PRN pain #30 tabs 05/27/24 acetaminophen 500 mg tablet 500 mg PO Q6H PRN fever or pain 05/27/24 (Tylenol Extra Strength) #30 tabs nitrofurantoin 100 mg PO BID #14 caps 11/25/24 monohydrate/macrocrystals 100 mg capsule (Macrobid) vit no.95-ferrous 1 tab PO QDAY #30 tabs 11/25/24 fumarate 28 mg-folic acid 800 mcg tablet ( Multivitamins) Allergies Allergy/AdvReac Type Severity Reaction Status Date / Time vancomycin Allergy Severe Red Dafne Verified 12/31/24 18:15 Syndrome Review of Systems Review of Systems Narrative Review of Systems: GEN: No fever, no chills, no weight loss, +feeling faint, +dizziness, +weakness, +cold sweats EYES: No discharge, no visual changes, no pain HEENT: +ear ringing. No ear pain, no congestion, no sore throat PULM: +shortness of breath, no cough, no congestion CV: No chest pain, no palpitations GI: No nausea, no vomiting, no diarrhea, no pain, no constipation : No frequency, no urgency, no dysuria MUSC/SKEL: No joint pain, no back pain SKIN: No rash NEURO: No weakness, no headache Past Medical History Past Medical History NEUROLOGIC: Positive Neurological Disorders and Migraine REPRODUCTIVE: Positive Previous Pregnancies MUSCULOSKELETAL: Positive Musculoskeletal Disorders HEMATOLOGIC: Positive Anemia PSYCHO/SOCIAL: Positive Anxiety Family History FAMILY HISTORY: Positive Family Psychiatric Problems, Family Cardiac Disorders and Family Surgery Surgical History SURGICAL: Positive Lumpectomy Social History SMOKING STATUS: Never smoker SECOND HAND EXPOSURE: No SUBSTANCE USE: does not use ED Exam Narrative Physical exam: GENERAL APPEARANCE: alert and oriented x 4, well-developed, well-nourished, no acute distress HEENT: Normocephalic, atraumatic; pupils equal, round, reactive to light; EOMI; mucous membranes pink, moist; oropharynx clear NECK: Supple LUNGS: CTABL; no wheezes, no rales, no rhonchi HEART: Regular rate, regular rhythm; normal S1, S2; no murmurs ABDOMEN: gravid fundus consistent with gestational age; normal BS; soft, no tenderness, no guarding, no rebound; no masses, no organomegaly, no hernia BACK: no CVA tenderness EXTREMITIES: atraumatic; no edema NEUROLOGIC: awake; alert and oriented x4; cranial nerves II-XII grossly intact; no focal sensory or motor deficits PSYCHIATRIC: appropriate mood and affect SKIN: warm, dry, normal color; no rashes Course Quality Measures none Orders Category Date Time Status Bedside COVID-19 Antigen Test NOW Care 01/26/25 10:46 Completed Bedside Influenza A&B Antigen Test NOW Care 01/26/25 10:46 Completed EKG (ED ONLY) *Do not use* NOW Care 01/26/25 10:17 Completed Orthostatic Vitals NOW Care 01/26/25 10:25 Completed EKG (ED Only) Stat Exams 01/26/25 10:17 Draft Beta HCG,Quantitative Stat Lab 01/26/25 11:00 Completed Urinalysis Stat Lab 01/26/25 10:51 Completed Urine Culture Stat Lab 01/26/25 10:51 Received Sodium Chloride 0.9% 1000 ml [Ns] 1,000 ml Med 01/26/25 10:47 Discontinued IV 999 mls/hr Vital Signs Vital signs: Vital Signs Temperature 98.5 F 01/26/25 09:52 Pulse Rate 88 01/26/25 09:52 Respiratory Rate 16 01/26/25 09:52 Blood Pressure 115/78 01/26/25 09:52 Pulse Oximetry (%) 98 01/26/25 09:52 Oxygen Delivery Method Room Air 01/26/25 09:52 Pulse ox is 98% on room air which is adequate. Syncope MDM Narrative MDM Narrative:: oJhanna Michaud am scribing for and in the presence of Dr. Johnson. Patient data External records reviewed:: [facility] previous records (I reviewed ED visit on 12/31/2024 ) and EMS form Clinical information provided by:: patient and EMS Social determinants that could affect healthcare access:: none Patient has the following chronic illnesses:: hx of pregnancies and is currently no chronic med hx reported How is presenting disease/condition affected by chronic disease/condition?: no chronic disease Evaluation data The following diagnostics were reviewed and interpreted by me:: lab results and EKG tracing(s) (Sinus rhythm, rate 83, no acute ischemic changes, no STEMI) Lab and/or radiology exams considered but not ordered:: None Interpretation Summary: UA is negative for infection Medications / Prescriptions Medications or Prescriptions considered but not ordered:: None Medication administrations:: Medication Administration History Discontinued Medications Sodium Chloride (Ns) 1,000 mls @ 999 mls/hr IV .Q1H1M ONE Stop: 01/26/25 11:47 Last Infusion: 01/26/25 12:38 Dose: Infused Documented By: Admin: 01/26/25 11:08 Dose: 999 mls/hr Documented By: JEFFREY See above Consultations Consultation(s) initiated? (list below): No Diagnosis Syncope Differential Diagnosis: syncope due to orthostatic hypotension, vasovagal syncope and dehydration Most likely diagnosis given after review of the tests above:: Dizziness Admission Indicated Admission indicated?: not indicated Admission Request Was there a request for admission?: No Disposition Plan Disposition Plan: Discharge Discharge Attestation Discharge Attestation: The patient and all family members were given an opportunity to ask questions and understood the discharge instructions. Discharge instructions specifically effects, indications for sooner follow up or return to the emergency department, and the expected course of current diagnosis. Patient condition: Stable Discharge Plan Plan Patient Disposition: HOME (Self Care) Prescriptions/Referrals Prescriptions/Med Rec: No Action omeprazole 20 mg capsule,delayed release(DR/EC) 20 mg PO QDAY cephalexin 500 mg capsule 500 mg PO BID sertraline 25 mg Tablet 25 mg PO QDAY ibuprofen 600 mg tablet 600 mg PO Q6H PRN (Reason: pain) Qty: 20 0RF ibuprofen [IBU] 800 mg tablet 800 mg PO Q6H PRN (Reason: pain) Qty: 30 0RF acetaminophen [Tylenol Extra Strength] 500 mg tablet 500 mg PO Q6H PRN (Reason: fever or pain) Qty: 30 0RF PNV cmb#95-ferrous fumarate-FA [ Multivitamins] 28 mg iron- 800 mcg tablet 1 tab PO QDAY Qty: 30 0RF nitrofurantoin monohyd/m-cryst [Macrobid] 100 mg capsule 100 mg PO BID Qty: 14 0RF Rx Instructions: must administer with a meal/food Referrals: Nnamdi Hall PA-C [Primary Care Provider] - In 1 week Problem List Clinical Impression: Dizziness, Patient/Caregiver Discharge Instructions Education Materials: ED Dizziness, Uncertain Cause Print Language: Tajik Stand Alone Forms: [facility] Award Info., Patient Portal Info Letter
[2025-01-26 10:58] LABS: Collection Type, Urine Clean Catch
[2025-01-26] MEDS: SODIUM CHLORIDE 0.9% 1000 ML 1,000 ML 999 ML IV (11:08)
[2025-01-26 11:17] LABS: Bacteria,Urine 3+; Bilirubin,Urine Negative (Negative); Blood,Urine Negative (Negative); Color,Urine Lt-Yellow (Lt Yel-Yel); Glucose, Urine Negative (Negative); Ketones,Urine Negative (Negative); Leukocyte Esterase,Urine Negative (Negative); Nitrite,Urine Negative (Negative); Protein,Urine Negative (Neg - Trace); RBC,Urine 1 /hpf (0-3); Specific Gravity,Urine 1.009 (1.001-1.035); Squamous Epithelial Cell,Urine 14 /hpf (0-5); Urobilinogen,Urine Negative mg/dL (0.0-1.0); WBC,Urine 3 /hpf (0-5)
[2025-01-26 11:24] LABS: Clarity,Urine Hazy (Clear/Hazy)
[2025-01-26 11:54] LABS: Beta HCG,Quantitative 4354 mIU/mL (<5.0)
[2025-01-26 12:39] VITALS: BP 112/77; PULSE 73; RESP 18; O2SAT 100
[2025-01-26 14:48] VITALS: BP 100/62; PULSE 91; RESP 17; TEMP 36.9; O2SAT 97
== END 2025-01-26 14:56 | disposition home or self-care (01) ==
PROVIDERS: Emergency Provider Emergency Medicine; PCP Physician Assistant
DX: O99.891 Other specified diseases and conditions complicating pregnancy (principal); R42 Dizziness and giddiness; R53.1 Weakness; R55 Syncope and collapse; Z3A.24 24 weeks gestation of pregnancy
CPT/HCPCS: 36415; 81001; 84702; 87086; 87400; 87811; 93005; 96360; 99284; J7030

== ENCOUNTER 2025-04-19 14:49 | Observation (INO) | payer MEDICAID, SELFPAY ==
[2025-04-19] VITALS (33 sets, daily range): BP systolic 110; BP diastolic 81; PULSE 66–92; RESP 16–98; TEMP 36.3; O2SAT 96–99; BMI 33.0
--- NOTE | 2025-04-19 15:45 | XR_ITS ---
Examination: Retroperitoneal ultrasound, complete Technique: Multiple high resolution grayscale images of the retroperitoneum obtained, including kidneys and bladder. Exam date and time:April 19, 2025 1631 hours INDICATIONS: Onset of bilateral flank pain today, 35 week by history FINDINGS: Right kidney 11.0 cm renal cortex 1.2 cm Left kidney 11.9 cm renal cortex 1.3 cm Mild bilateral renal parenchymal scar formation. No renal calculi or hydronephrosis. Contracted urinary bladder Incidental note 14 mm gallstone, gallbladder wall does not appear thickened IMPRESSION: Bilateral renal cortical thinning Mild bilateral renal parenchymal scarring examination No hydronephrosis Cholelithiasis
[2025-04-19] MEDS: PROMETHAZINE INJ 25 MG/ML VIAL IM (15:55)
[2025-04-19] MEDS: MEPERIDINE INJ 50 MG/ML VIAL IM (15:55)
[2025-04-19 16:09] LABS: Collection Type, Urine Clean Catch
[2025-04-19 16:22] LABS: Bacteria,Urine 3+; Bilirubin,Urine Negative (Negative); Blood,Urine Negative (Negative); Clarity,Urine Clear (Clear/Hazy); Color,Urine Lt-Yellow (Lt Yel-Yel); Culture Indicated,Urine Contaminated; Glucose, Urine Negative (Negative); Ketones,Urine Negative (Negative); Leukocyte Esterase,Urine Negative (Negative); Nitrite,Urine Negative (Negative); PH,Urine 6.5 (5.0-7.0); Protein,Urine Negative (Neg - Trace); RBC,Urine < 1 /hpf (0-3); Specific Gravity,Urine 1.005 (1.001-1.035); Squamous Epithelial Cell,Urine 20 /hpf (0-5); Urobilinogen,Urine Negative mg/dL (0.0-1.0); WBC,Urine 1 /hpf (0-5)
[2025-04-19] MEDS: cefTRIAXone 1,000 MG, LIDOCAINE 1% 20 ML 2.1 ML IM (17:57)
== END 2025-04-19 18:28 | disposition home or self-care (01) ==
PROVIDERS: Admitting Provider Specialist; Visit Provider Specialist
DX: O99.613 Diseases of the digestive system complicating pregnancy, third trimester (principal); K80.20 Calculus of gallbladder without cholecystitis without obstruction; Z3A.35 35 weeks gestation of pregnancy
CPT/HCPCS: 59025; 59899; 76770; 81001; 96372; J0696; J2175; J2550; J3490

== ENCOUNTER 2025-05-16 10:18 | Inpatient (IN) | payer MEDICAID, SELFPAY ==
--- NOTE | 2025-05-13 20:44 | ESHP_ITS ---
RE: DANYA RAVI : 1985 DATE OF ADMISSION: 05/16/2025 DATE OF SURGERY: 05/16/2025 This is a 39-year-old 4, para 3-0-0-3 with due date of 05/21 with intrauterine at 39 weeks, who presents for repeat delivery. She is also multiparous and desires voluntary sterilization. ALLERGIES: VANCOMYCIN. MEDICATIONS: 1. multivitamin 1 p.o. daily. 2. Aspirin 81 mg 1 p.o. daily. PAST MEDICAL HISTORY: Gallstones, urinary tract infection, low back pain, shoulder dystocia, macrosomia, advanced maternal age, anxiety. SOCIAL HISTORY: She is . She denies any alcohol, drug use or smoking. OBSTETRIC HISTORY: In 2010, 40-week normal vaginal delivery, 8-pound male, no complications. In 2013, 40-week normal vaginal delivery, 8-pound female, no complications. In 2018, 40-week normal vaginal delivery, 7-lmqss-2-ounce male, complicated by shoulder dystocia. PAST SURGICAL HISTORY: Denies. REVIEW OF SYSTEMS: She denies any chest pain, palpitations, cough, fever, shortness of breath or lower extremity pain. PHYSICAL EXAMINATION: VITAL SIGNS: Blood pressure 127/83, heart rate 88, respirations 18, temperature is 98.6. HEENT: Oropharynx and sclerae are clear. LUNGS: Clear to auscultation bilaterally. HEART: Regular rate and rhythm. ABDOMEN: Gravid, term size. EXTREMITIES: Nontender. SKIN: No gross rashes or lesion. NEUROLOGIC: No focal deficits. ASSESSMENT: Intrauterine at 39 weeks, previous shoulder dystocia, elects delivery, multiparity, desires voluntary sterilization. PLAN: Bilateral tubal ligation. Informed consent was obtained. The patient was made aware of the risks, complications, alternatives and benefits of the proposed procedure and she agrees. She is aware of the failure rate and increased risk of tubal ectopic gestation if occurs. She is aware that vasectomy has a lower failure rate, but her male partner declines that option. DT: 18:38:16 TT: 20:42:00 Ref: [id number] - TID: [id number] [facility]
[2025-05-15 12:23] LABS: Basophils # (Auto) 0.0 Thou/mm3 (0.0-0.2); Basophils % (Auto) 0 % (0-2.5); Eosinophils # (Auto) 0.0 Thou/mm3 (0.0-0.5); Eosinophils % (Auto) 1 % (0-10); Hematocrit 37.7 % (36.0-46.0); Hemoglobin 13.0 g/dL (12.0-16.0); Immature Granulocytes Auto 0.01 Thou/mm3 (0.00-0.00); Lymphocytes # (Auto) 1.6 Thou/mm3 (1.0-4.8); Lymphocytes % (Auto) 26 % (10-50); Mean Corpuscular HGB Conc 34.5 g/dl (31.0-37.0); Mean Corpuscular Hemoglobin 30.4 pg (25.0-35.0); Mean Corpuscular Volume 88 fL (80-100); Monocytes # (Auto) 0.5 Thou/mm3 (0.0-0.8); Monocytes % (Auto) 8 % (0-12); Neutrophils # (Auto) 4.1 Thou/mm3 (1.8-7.7); Neutrophils % (Auto) 65 % (37-80); Nucleated Red Blood Cell # 0.00 Thou/mm3 (0.00-0.00); Nucleated Red Blood Cell % 0 /100 WBC (0); Platelet Count 168 Thou/mm3 (140-440); RDW Standard Deviation 46.9 fL (36.4-46.3); Red Blood Count 4.28 Miln/mm3 (4.00-5.20); White Blood Count 6.3 Thou/mm3 (3.6-11.0)
[2025-05-15 12:30] LABS: INR 1.0 (0.9-1.3); Partial Thromboplastin Time 25.2 Seconds (22.0-36.0); Prothrombin Time 10.5 Seconds (9.0-12.2)
[2025-05-15 12:31] LABS: Alanine Aminotransferase 10 U/L (10-49); Albumin, Serum 3.6 gm/dL (3.5-5.0); Albumin/Globulin Ratio 1.4 (1.2-2.2); Alkaline Phosphatase 146 U/L (46-116); Anion Gap 14 (7-16); Aspartate Amino Transferase 19 U/L (0-34); BUN/Creatinine Ratio 11 Ratio (12-20); Bilirubin,Total 0.5 mg/dL (0.3-1.2); Blood Urea Nitrogen 9 mg/dL (9-23); Calcium 8.8 mg/dL (8.3-10.6); Calcium (Corrected) 9.1 mg/dL (8.5-10.1); Carbon Dioxide 18.1 mMol/L (20.0-31.0); Chloride 107 mMol/L (98-107); Creatinine (Component) 0.8 mg/dL (0.6-1.3); Globulin 2.5 gm/dL (2.3-3.5); Glucose 128 mg/dL (74-106); Osmolality,Calculated 278 (275-295); Potassium 3.8 mMol/L (3.4-5.1); Sodium 139 mMol/L (136-145); Total Protein 6.1 gm/dL (5.7-8.2); eGFR > 60 See Note
[2025-05-15 12:47] LABS: Syphilis Nonreactive (Nonreactive)
[2025-05-16] VITALS (45 sets, daily range): BP systolic 0–156; BP diastolic 0–101; PULSE 65–88; RESP 12–21; TEMP 36.5–36.9; O2SAT 97–99; BMI 33.4
[2025-05-16] MEDS: RINGERS LACTATED 1000 ML 1,000 ML 100 ML IV ×2 (10:51→13:03)
[2025-05-16] MEDS: FAMOTIDINE INJ 10 MG/ML VIAL 2 ML 20 MG IV (12:58)
[2025-05-16] MEDS: CITRIC ACID/SODIUM CITR 15 ML UDC (BICITRA) 30 ML PO (12:58)
[2025-05-16] MEDS: ceFAZolin/D5W 2 GM IV 2 GM/100 ML BAG IV (12:58)
--- NOTE | 2025-05-16 14:17 | PD.LDDELS ---
Data (Farmer) Data Hx Section: No : 4 Term: 3 : 0 Livin Abortions: Spontaneous & Theraputic: 0 Delivery Data (Farmer) Labor Data Induction/Augmentation Agent: None and Cytotec-PO ROM date: 05/16/25 ROM time: 13:39 Amniotic membrane rupture type: Artificial Amniotic fluid description: Clear Delivery Data EDC: 05/21/25 EDC calculated by:: LMP/early US confirmation [place] delivery date: 05/16/25 [place] delivery time: 13:40 Gestational age (weeks): 39 Gestational age (days): 2 Placenta delivery date: 05/16/25 Placenta delivery time: 13:41 Delivered by: [place] Delivery nurse: Jennifer Pickering nurse: Cristin Gill Cruise Guide at delivery: No Delivery Method Delivery method: Low Transverse Presentation: [place] Anesthesia Type Anesthesia Type: Spinal Placenta Placenta delivery description: Manual Removal Cord blood sent to lab: Yes cord blood collection: Cord Blood Type Episiotomy Episiotomy description: None EBL Estimated blood loss (ml): 700 Umbilical Cord cord description: 3 Vessels Additional Procedures Bilateral salpingectomy Complications Complications: None [place] Data (Farmer) Data [place]'s gender: Male Identification band number: [id number] weight (gms): 9 lb 8.384 oz Weight (pounds): 9 lbs and 8.4 ozs length: 22 in 1 minute: 8 5 minutes: 9
--- NOTE | 2025-05-16 14:19 | PD.LDDS ---
DS: Providers Provider Date of admission: 05/16/25 10:18 Primary care physician: Nnamdi Hall PA-C Admitting Provider: Max Mcnair MD Attending Provider on Admission: Max Mcnair MD Attending Provider on DC: Max Mcnair MD Discharging Provider: Max Mcnair MD DS: Diagnosis Discharge Diagnosis (1) delivery delivered: Status: Acute (2) Sterilization: Status: Acute Problem List Completed Was Problem List Reviewed/Reconciled?: Yes Summary/Hosp Course Peripartum Data Delivery Method: Low Transverse Episiotomy Description: None Procedures: Procedures Operation Date: 05/16/25 13:15 Actual Procedure Side Surgeon p w/tubal OB Max Mcnair MD complications: none [place] 1: Gender: Male Disposition of : home Time Spent with Patient Time attestation: Total time spent providing and/or coordinating discharge services: Exam Vital Signs Temp Pulse Resp BP Pulse Ox O2 Del Method 98.4 F 74 18 140/92 H 98 Room Air 05/16/25 10:34 05/16/25 12:53 05/16/25 10:34 05/16/25 12:53 05/16/25 12:35 05/16/25 10:34 Discharge Plan Plan Patient Disposition: HOME (Self Care) Patient condition on transfer: Stable Prescriptions/Referrals Prescriptions/Med Rec: New ibuprofen 600 mg tablet 600 mg PO Q6H PRN (Reason: pain) Qty: 30 0RF No Action aspirin 81 mg tablet,delayed release (DR/EC) 81 mg PO QDAY Patient Comments: TAKE 1 TABLET BY MOUTH EVERY DAY acetaminophen [Tylenol Extra Strength] 500 mg tablet 1,000 mg PO Q6H PRN (Reason: fever or pain) PNV cmb#95-ferrous fumarate-FA [ Multivitamins] 28 mg iron- 800 mcg tablet 1 tab PO QDAY Qty: 30 0RF Referrals: Nnamdi Hall PA-C [Primary Care Provider] - Patient/Caregiver Discharge Instructions Discharge Activity: activity as tolerated Other Discharge Activity Instructions:: Follow up office 1 week. She already has a Rx for [place]. Education Materials: C Section Dc Print Language: Luxembourger Stand Alone Forms: Skylar Award Info., Patient Portal Info Letter Planned Discharge Date 05/18/25
--- NOTE | 2025-05-16 14:20 | PD.GYNPROC ---
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 Procedure Date of procedure: 05/16/25 Procedure Performed: Repeat low-transverse section Via Pfannenstiel skin incision and bilateral salpingectomy Indication: Intrauterine at 39 weeks and 2 days Previous delivery electives repeat delivery Multiparity desires voluntary sterilization [place] breech presentation Pre-Op diagnosis: Intrauterine at 39 weeks and 2 days Previous delivery electives repeat delivery Multiparity desires voluntary sterilization [place] breech presentation Post-Op diagnosis: Intrauterine at 39 weeks and 2 days Previous delivery electives repeat delivery Multiparity desires voluntary sterilization [place] breech presentation Anesthesia type: Spinal Procedure description: After proper informed consent was obtained and the patient was made aware of the risks, complications, alternatives and benefits of the proposed procedure she was taken to the operating room where she underwent induction of spinal anesthesia. She was prepped and draped in the usual sterile fashion. A timeout was performed.? A Pfannenstiel skin incision was made with the scalpel and carried through to the underlying layer of fascia with the Bovie. The fascia was nicked in the midline incision and the incision was extended bilaterally with the Bovie. The inferior aspect of the fascial incision was grasped with Janet clamps elevated and the underlying rectus muscle dissected off with the Bovie. The superior aspect the fascial incision was grasped with Janet clamps elevated and the underlying rectus muscle dissected off with the Bovie. The rectus muscles were in the midline. The peritoneum was grasped between 2 Dhillon clamps and entered sharply with the Metzenbaum scissors. The peritoneum was extended superiorly and inferiorly with good visualization of the bladder. The vesicouterine peritoneum was incised transversely and the bladder flap created digitally. A [place] blade was inserted. A low transverse incision was made in the uterus with a scapel and the incision was extended digitally. The infant's feet, legs and hips were gently guided through the low transverse incision followed by the anterior and posterior shoulder then the after-coming head kept in the gently flexed position was delivered atraumatically. The mouth and nose were suctioned with the bulb suction. The cord was clamped after 30 second delayed cord clamping and the cord was cut.? The was handed off to the waiting Pediatric staff, cord blood was collected for lab testing. The placenta was removed complete and intact. The uterus was exteriorized and cleared of all clots and debris. The uterine incision was closed with #1-0 chromic catgut suture in a running interlocking fashion. A second layer of the same suture was used to imbricate the first layer and obtain excellent hemostasis. The vesicouterine peritoneum was closed with 2-0 chromic catgut suture in a running fashion. Attention was turned to the left fallopian tube which was grasped at the fimbriated end with a Ai clamp and using the Enseal X-1 large jaw a left salpingectomy was performed. Hemostasis achieved. Attention was turned to the right fallopian tube which was grasped at the fimbriated end with a Ai clamp and using the Enseal X-1 large jaw a left salpingectomy was performed. Hemostasis achieved. The firm uterus was returned to the abdomen. The gutters were cleared of all clots and debris. The peritoneum was closed with 0 chromic catgut suture in running fashion. The rectus muscle was closed with 0 chromic catgut suture. The fascia was closed with 0 Vicryl beginning at each angle and ending in the center in a running fashion. The subcutaneous tissue was irrigated with warmed normal saline solution and found to be hemostatic. The subcutaneous tissue was closed with 2-0 chromic catgut suture in a running fashion. The skin was closed with 4-0 Monocryl. A Dermabond Prineo dressing was applied and a sterile pressure dressing was applied.? She tolerated the procedure well. Counts were correct. I discussed with the patient the nature of her condition, intraoperative findings and expectation for recovery all?questions answered. Specimen: left tube and right tube Estimated blood loss (ml): 700 Complications: none Surgical staff Operation Date: 05/16/25 13:15 Case Staff CHEESE WRAPPER: Escobar Lawson RNnegative cleaner: Marjan Jose Diagnosis Discharge Diagnosis (1) delivery delivered: Status: Acute (2) Sterilization: Status: Acute Problem List Completed Was Problem List Reviewed/Reconciled?: Yes
[2025-05-16 16:18] LABS: Creatinine,Random Urine 52 mg/dL (30-125); Protein Total, Random Urine 24 mg/dL (1-14)
[2025-05-16] MEDS: KETOROLAC INJ 30 MG/ML VIAL IVP (16:19)
[2025-05-16] MEDS: OXYTOCIN in NS 20 units 20 UNIT/1,000 ML BAG 125 UNIT IV (17:50)
[2025-05-16] MEDS: ONDANSETRON INJ 2 MG/ML INJ 2 ML 4 MG IVP (17:50)
[2025-05-16 20:06] LABS: Basophils # (Auto) 0.0 Thou/mm3 (0.0-0.2); Basophils % (Auto) 0 % (0-2.5); Eosinophils # (Auto) 0.0 Thou/mm3 (0.0-0.5); Eosinophils % (Auto) 0 % (0-10); Hematocrit 35.3 % (36.0-46.0); Hemoglobin 12.4 g/dL (12.0-16.0); Immature Granulocytes Auto 0.04 Thou/mm3 (0.00-0.00); Lymphocytes # (Auto) 2.0 Thou/mm3 (1.0-4.8); Lymphocytes % (Auto) 14 % (10-50); Mean Corpuscular HGB Conc 35.1 g/dl (31.0-37.0); Mean Corpuscular Hemoglobin 30.8 pg (25.0-35.0); Mean Corpuscular Volume 88 fL (80-100); Monocytes # (Auto) 1.3 Thou/mm3 (0.0-0.8); Monocytes % (Auto) 9 % (0-12); Neutrophils # (Auto) 10.7 Thou/mm3 (1.8-7.7); Neutrophils % (Auto) 76 % (37-80); Nucleated Red Blood Cell # 0.00 Thou/mm3 (0.00-0.00); Nucleated Red Blood Cell % 0 /100 WBC (0); Platelet Count 141 Thou/mm3 (140-440); RDW Standard Deviation 45.7 fL (36.4-46.3); Red Blood Count 4.02 Miln/mm3 (4.00-5.20); White Blood Count 14.0 Thou/mm3 (3.6-11.0)
[2025-05-17] MEDS: KETOROLAC INJ 30 MG/ML VIAL IVP (00:50)
[2025-05-17] MEDS: RINGERS LACTATED 1000 ML 1,000 ML 100 ML IV (01:07)
[2025-05-17 03:00] VITALS: BP 149/93; PULSE 69; RESP 18; TEMP 36.7; O2SAT 98
[2025-05-17 08:25] VITALS: BP 133/83; PULSE 72; RESP 18; TEMP 36.7; O2SAT 97
[2025-05-17] MEDS: IBUPROFEN TAB 400 MG TABLET 800 MG PO ×2 (08:28→17:02)
[2025-05-17] MEDS: ENOXAPARIN SOD INJ 40 MG/0.4 ML SYRINGE SC (08:29)
[2025-05-17] MEDS: DOCUSATE SOD 100 MG CAPSULE PO (08:29)
--- NOTE | 2025-05-17 08:50 | ESPR_ITS ---
Subjective Subjective Interval history: Delivery type: Patient doing well this morning. No acute complaints. Ambulating, tolerating p.o. and voiding without difficulty. HTN/Pre-Eclampsia screen: No chest pain, shortness of breath, headache, visual changes, epigastric or right upper quadrant pain. Breast-feeding, lochia diminishing. Bowel: Flatus+/ Exam Vital Signs Temp Pulse Resp BP Pulse Ox O2 Del Method 98.1 F 69 18 149/93 H 98 Room Air 05/17/25 03:00 05/17/25 03:00 05/17/25 03:00 05/17/25 03:00 05/17/25 03:00 05/17/25 03:00 Constitutional Constitutional: no acute distress Routine HEENT Exam Head: Present normocephalic and atraumatic Eye: Present EOMI and PERRL ENT: Present mucous membranes moist Routine Neck Exam Neck: Present supple and trachea midline Routine Respiratory Exam Respiratory: Present chest non-tender, lungs clear, normal breath sounds and no resp distress Routine Cardiovascular Exam Cardiovascular: Present RRR Routine Abdominal Exam Abdominal: Present soft and normoactive bowel sounds Routine Extremities Exam Extremities: Present full ROM Routine Skin Exam Skin: Present intact, dry and warm Routine Neurological Exam Neurological: Present alert, oriented X3 and CN II-XII intact Routine Psychiatric Exam Psychiatric: Present normal affect and normal thought process Objective Labs 05/16/25 19:16 05/15/25 11:21 Labs: Laboratory Results - last 24 hr 05/16/25 05/16/25 15:45 19:16 WBC 14.0 H D RBC 4.02 Hgb 12.4 Hct 35.3 L MCV 88 MCH 30.8 MCHC 35.1 RDW Std Deviation 45.7 Plt Count 141 Neut % (Auto) 76 Lymph % (Auto) 14 [place] % (Auto) 9 Eos % (Auto) 0 Baso % (Auto) 0 Neut # (Auto) 10.7 H Lymph # (Auto) 2.0 [place] # (Auto) 1.3 H Eos # (Auto) 0.0 Baso # (Auto) 0.0 Immature Gran # (Auto) 0.04 H Absolute Nucleated RBC 0.00 Immature Gran % 0 Nucleated RBC % 0 Ur Random Creatinine 52 U Random Total Protein 24 H Assessment & Plan Problem List (1) delivery delivered: Status: Acute Assessment and plan: 1. Continue routine /post-op care 2. Labs reviewed, cbc appropriate 3. Remove dressing/[place] 4. Encourage to ambulate, shower 5. Encourage PO intake, breast feeding (2) Sterilization: Status: Acute Time Spent With Patient Time: Total time spent is greater than 50% in coordination of care (as documented) at patient's floor/unit and/or counseling patient:
[2025-05-17 13:25] VITALS: BP 120/73; PULSE 75; RESP 16; TEMP 36.8; O2SAT 96
[2025-05-17 16:49] VITALS: BP 120/78; PULSE 67; RESP 16; TEMP 36.8; O2SAT 97
[2025-05-17 20:00] VITALS: BP 128/73; PULSE 71; RESP 16; TEMP 37.2; O2SAT 97
[2025-05-17] MEDS: HYDROcodone/APAP 5/325 TABLET 1 TAB PO (21:58)
[2025-05-18 04:00] VITALS: BP 123/75; PULSE 67; RESP 19; TEMP 36.8; O2SAT 96
--- NOTE | 2025-05-18 07:24 | PD.LDPPPRG ---
Subjective Subjective Interval history: Delivery type: with BTL Patient doing well this morning. No acute complaints. Ambulating, tolerating p.o. and voiding without difficulty. HTN/Pre-Eclampsia screen: No chest pain, shortness of breath, headache, visual changes, epigastric or right upper quadrant pain. Breast-feeding, lochia diminishing. Bowel: Flatus+/ BM+ Exam Vital Signs Temp Pulse Resp BP Pulse Ox O2 Del Method 98.3 F 67 19 123/75 96 Room Air 05/18/25 04:00 05/18/25 04:00 05/18/25 04:00 05/18/25 04:00 05/18/25 04:00 05/18/25 04:00 Constitutional Constitutional: no acute distress Routine HEENT Exam Head: Present normocephalic and atraumatic Eye: Present EOMI and PERRL ENT: Present mucous membranes moist Routine Neck Exam Neck: Present supple and trachea midline Routine Respiratory Exam Respiratory: Present chest non-tender, lungs clear, normal breath sounds and no resp distress Routine Cardiovascular Exam Cardiovascular: Present RRR Routine Abdominal Exam Abdominal: Present soft and normoactive bowel sounds Routine Extremities Exam Extremities: Present full ROM Routine Skin Exam Skin: Present intact, dry and warm Routine Neurological Exam Neurological: Present alert, oriented X3 and CN II-XII intact Routine Psychiatric Exam Psychiatric: Present normal affect and normal thought process Objective Labs 05/16/25 19:16 05/15/25 11:21 Assessment & Plan Problem List (1) delivery delivered: Status: Acute Assessment and plan: PPD/POD#2 1. Continue routine care 2. Transition to PO meds. 3. Encourage to ambulate/ breast-feed 4. Anticipate discharge home today. (2) Sterilization: Status: Acute Time Spent With Patient Time: Total time spent is greater than 50% in coordination of care (as documented) at patient's floor/unit and/or counseling patient:
--- NOTE | 2025-05-18 07:25 | PD.LDDS ---
DS: Providers Provider Date of admission: 05/16/25 10:18 Primary care physician: Nnamdi Hall PA-C Admitting Provider: Max Mcnair MD Attending Provider on Admission: Gene Prakash MD Consults: 05/16/25 16:16 Referral Routine Comment: Attending Provider on DC: Gene Prakash MD Discharging Provider: Gene Prakash MD DS: Diagnosis Discharge Diagnosis (1) Sterilization: Status: Acute (2) delivery delivered: Status: Acute Problem List Completed Was Problem List Reviewed/Reconciled?: Yes Summary/Hosp Course Peripartum Data Delivery Method: Low Transverse Episiotomy Description: None Procedures: Procedures Operation Date: 05/16/25 13:15 Actual Procedure Side Surgeon p w/tubal OB Max Mcnair MD Time Spent with Patient Time attestation: Total time spent providing and/or coordinating discharge services: Exam Vital Signs Temp Pulse Resp BP Pulse Ox O2 Del Method 98.3 F 67 19 123/75 96 Room Air 05/18/25 04:00 05/18/25 04:00 05/18/25 04:00 05/18/25 04:00 05/18/25 04:00 05/18/25 04:00 Discharge Plan Plan Patient Disposition: HOME (Self Care) Patient condition on transfer: Stable Prescriptions/Referrals Prescriptions/Med Rec: New hydrocodone-acetaminophen 5-325 mg Tablet 1 tab PO Q6HR MDD 4 PRN (Reason: Patient rated pain 9 to 10) 5 Days Qty: 20 0RF ibuprofen 400 mg Tablet 800 mg PO Q8HR PRN (Reason: Pain Scale 4-6 (Moderate) 10 Days Qty: 40 0RF docusate sodium 100 mg Capsule 100 mg PO QDAY 30 Days Qty: 30 0RF Discontinued aspirin 81 mg tablet,delayed release (DR/EC) 81 mg PO QDAY Patient Comments: TAKE 1 TABLET BY MOUTH EVERY DAY acetaminophen [Tylenol Extra Strength] 500 mg tablet 1,000 mg PO Q6H PRN (Reason: fever or pain) No Action PNV cmb#95-ferrous fumarate-FA [ Multivitamins] 28 mg iron- 800 mcg tablet 1 tab PO QDAY Qty: 30 0RF Referrals: Nnamdi Hall PA-C [Primary Care Provider] - Max Mcnair MD [Physician] - Patient/Caregiver Discharge Instructions Discharge Activity: activity as tolerated Other Discharge Activity Instructions:: Follow up office 1 week. She already has a Rx for [place]. Education Materials: After Delivery Concerns, Breast Care After , After a , Nutrition While , Understanding Depression, : Caring for Yourself, C Section Dc, Feel Healthy After Print Language: Maltese Stand Alone Forms: Skylar Award Info., Patient Portal Info Letter, DC from Surgery Discharge Order Discharge Orders: Discharge (Routine); Ordered 05/18/25 Ordered By: Gene Prakash Planned Discharge Date 05/18/25
[2025-05-18 08:30] VITALS: BP 123/55; PULSE 81; RESP 20; TEMP 37.2; O2SAT 97
[2025-05-18] MEDS: IBUPROFEN TAB 400 MG TABLET 800 MG PO (08:39)
[2025-05-18] MEDS: DOCUSATE SOD 100 MG CAPSULE PO (08:39)
[2025-05-18] MEDS: ENOXAPARIN SOD INJ 40 MG/0.4 ML SYRINGE SC (08:40)
== END 2025-05-18 14:15 | disposition home or self-care (01) | DRG 539 ==
LOC: S4SX 12:15 → S4NX 13:25
PROVIDERS: Admitting Provider Specialist; PCP Physician Assistant; Visit Provider Obstetrics & Gynecology
PROC: 0UL70ZZ Occlusion of Bilateral Fallopian Tubes, Open Approach (ICD-10-PCS; CPT 59514; principal; 2025-05-16 13:00)
DX: O34.211 Maternal care for low transverse scar from previous cesarean delivery (principal); O32.8XX0 Maternal care for other malpresentation of fetus, not applicable or unspecified; Z30.2 Encounter for sterilization; Z37.0 Single live birth; Z3A.39 39 weeks gestation of pregnancy
CPT/HCPCS: 36415; 59409; 80053; 82570; 84156; 85025; 85610; 85730; 86780; 86850; 86900; 86901; 94762; A4649; J0689; J1650; J1885; J2250; J2274; J2371; J2405; J2590; J3490; J7120; S0191; A9270; J2270